=== PATIENT | male | born 1980 | race Caucasian/White ===

== ENCOUNTER 2019-04-24 11:09 | Emergency (ER) | payer OTHER ==
--- NOTE | 2019-04-24 11:35 | UC ---
Skin Complaint HPI - HPI Summary HPI Summary: 38 yo male presents with insect bites. He tells me that for the past 6 weeks he has been dealing with insect bites on various parts of his body, mostly the extremities. He saw his PCP 2 days ago for this and was told it was a " histamine response" and was placed on a medrol ray. Yesterday he noticed one of the bug bites on his right wrist was becoming more red and swollen. Today he woke up and had a thin red streak coming up his volar forearm - this concerned him prompting his visit to . He has been feeling well and denies fever, chills , body aches, pain, drainage from the site. No hx of MRSA. - History of Current Complaint Chief Complaint: UCSkin Time Seen by Provider: 04/24/19 11:35 Stated Complaint: SKIN ISSUE Hx Obtained From: Patient Onset/Duration: Gradual Onset Onset Severity: Mild Current Severity: Mild Pain Intensity: 2 Pain Scale Used: 0-10 Numeric - Allergy/Home Medications Allergies/Adverse Reactions: Allergies Allergy/AdvReac Type Severity Reaction Status Date / Time No Known Allergies Allergy Verified 04/24/19 11:32 Home Medications: Home Medications methylPREDNISolone TAB* [Medrol TAB*] 04/24/19 [History] PMH/Surg Hx/FS Hx/Imm Hx - Additional Past Medical History Additional PMH: None - Surgical History Surgical History: Yes Surgery Procedure, Year, and Place: bx lymph nodes - Family History Known Family History: Positive: None - Social History Occupation: Employed Full-time Lives: With Family Alcohol Use: Occasionally Substance Use Type: Marijuana Smoking Status (MU): Never Smoked Tobacco Review of Systems All Other Systems Reviewed And Are Negative: Yes Constitutional: Positive: Negative Skin: Positive: Other - Bug bites Respiratory: Positive: Negative Cardiovascular: Positive: Negative Gastrointestinal: Positive: Negative Neurovascular: Positive: Negative Neurological: Positive: Negative Psychological: Positive: Negative Physical Exam - Summary Physical Exam Summary: GENERAL: NAD. WDWN. No pain distress. SKIN: RIGHT UE: Ulnar aspect of volar wrist with two 2mm flesh colored blisters with 2.0cm of surrounding mild erythema and edema. NTTP and no warmth. From this area there is a linear mildly erythematous streak extending to his midline distal AC 3mm in width. NTTP. No warmth, edema, or drainage. NECK: Supple. Nontender. No lymphadenopathy. CHEST: CTAB. No r/r/w. No accessory muscle use. Breathing comfortably and in no distress. CV: RRR. Without m/r/g. Pulses intact. Cap refill <2seconds MSK: FROM at right wrist and elbow without pain. NEURO: Alert. PSYCH: Age appropriate behavior. Triage Information Reviewed: Yes Vital Signs: Initial Vital Signs Temp 98 F 04/24/19 11:27 Pulse 55 04/24/19 11:27 Resp 18 04/24/19 11:27 BP 117/83 04/24/19 11:27 Pulse Ox 100 04/24/19 11:27 Vital Signs Reviewed: Yes Course/Dx - Course Course Of Treatment: I suspect cellulitis secondary to bug bite. His streaking is concerning for spreading infection, but he is currently afebrile, feeling well, is otherwise healthy, and has no other indicators of systemic infection -- given this, I discussed with him the option of going to the ED for a likely dose of IV antibiotics and labwork and dc with po antibiotics OR receiving an IM injection of anbx today as well as po antibiotics. He preferred not to go to the ED today and wishes to do the latter. He was given 1gm of ceftriaxone in the clinic and will start him with Clindamycin. I had a long discussion with him that if the streaking spreads or if he develops a fever, chills, pain, drainage, weakness, or fatigue - especially within the next 24 hours - to go directly to the ER. He voiced understanding and is in agreement with the plan. - Diagnoses Provider Diagnosis: Cellulitis, Bug bite Discharge - Sign-Out/Discharge Documenting (check all that apply): Patient Departure All imaging exams completed and their final reports reviewed: No Studies - Discharge Plan Condition: Stable Disposition: HOME Prescriptions: Clindamycin HCl 300 mg PO TID #21 capsule Patient Education Materials: Cellulitis (DC) Referrals: No Primary Care Phys,NOPCP [Primary Care Provider] - Additional Instructions: As discussed, please closely observe the area on your right arm. If this area spreads or becomes larger within the next 24-48 hours or if you develop a fever , chills, pain, or new symptoms - please go to the ER immediately. Take your antibiotic as prescribed. I recommend a follow up with your primary doctor for a recheck on Saturday - Billing Disposition and Condition Condition: STABLE Disposition: Home - Attestation Statements Provider Attestation: I was available for consult. This patient was seen by the YAMILKA. The patient was not presented to, seen by, or examined by me. -Chelsea
[2019-04-24] MEDS ORDERED: cefTRIAXone VIAL(*) 1,000 MG VIAL IM ONE (11:45)
[2019-04-24] MEDS ORDERED: Lidocaine 1% MPF* 2 ML VIAL INJ ONE (11:45)
[2019-04-24] MEDS ORDERED: Lidocaine 1%** 5 ML VIAL INJ ONE (11:51)
== END 2019-04-24 12:17 | disposition home or self-care (01) ==
LOC: UCEAST 11:09
DX: S60.861A Insect bite (nonvenomous) of right wrist, initial encounter (principal); S50.861A Insect bite (nonvenomous) of right forearm, initial encounter; L03.113 Cellulitis of right upper limb; W57.XXXA Bitten or stung by nonvenomous insect and other nonvenomous arthropods, initial encounter; Y93.9 Activity, unspecified; Y92.9 Unspecified place or not applicable
CPT/HCPCS: 96372; 99202; G0463; J0696